=== PATIENT | male | born 1975 | race Caucasian/White ===

== ENCOUNTER 2022-01-01 14:47 | Emergency (ER) | payer BC ==
[2022-01-01] MEDS ORDERED: fentaNYL 50 MCG/ML SDV IVPUSH ONE (14:57)
[2022-01-01] MEDS ORDERED: Sodium Chloride 0.9% 10 ML Syringe FLUSH SCH (15:00)
== END 2022-01-01 16:40 | disposition home or self-care (01) ==
LOC: VM.ED 14:47
DX: S20.212A Contusion of left front wall of thorax, initial encounter (principal); W10.8XXA Fall (on) (from) other stairs and steps, initial encounter
CPT/HCPCS: 70450; 71250; 96374; 99283; 99285-25; J3010